=== PATIENT | female | born 1965 | race Caucasian/White ===

== ENCOUNTER 2023-10-02 07:56 | Outpatient (RCR) | payer OTHER, SELFPAY | END 2023-10-02 23:59 | disposition home or self-care (01) | LOC: RPT 07:56 | PROVIDERS: ATTENDING PHYSICIAN Radiology Radiation Oncology; PRIMARYCARE PHYSICIAN Family Medicine | DX: I97.2 Postmastectomy lymphedema syndrome (principal); C50.812 Malignant neoplasm of overlapping sites of left female breast; M75.102 Unspecified rotator cuff tear or rupture of left shoulder, not specified as traumatic; Z73.6 Limitation of activities due to disability; M25.512 Pain in left shoulder; M79.622 Pain in left upper arm; M54.6 Pain in thoracic spine | CPT/HCPCS: 97140; 97530 ==

== ENCOUNTER 2023-11-13 17:24 | Outpatient (RCR) | payer OTHER, SELFPAY | END 2023-11-13 23:59 | disposition home or self-care (01) | LOC: RPT 17:24 | PROVIDERS: ATTENDING PHYSICIAN Radiology Radiation Oncology; PRIMARYCARE PHYSICIAN Family Medicine | DX: I97.2 Postmastectomy lymphedema syndrome (principal); C50.812 Malignant neoplasm of overlapping sites of left female breast; M75.102 Unspecified rotator cuff tear or rupture of left shoulder, not specified as traumatic; Z73.6 Limitation of activities due to disability; M25.512 Pain in left shoulder; M79.622 Pain in left upper arm; M54.6 Pain in thoracic spine | CPT/HCPCS: 97140; 97530 ==

== ENCOUNTER 2023-11-22 19:12 | Outpatient (RCR) | payer OTHER, SELFPAY | END 2023-11-22 23:59 | disposition home or self-care (01) | LOC: RPT 19:12 | PROVIDERS: ATTENDING PHYSICIAN Radiology Radiation Oncology; PRIMARYCARE PHYSICIAN Family Medicine | DX: I97.2 Postmastectomy lymphedema syndrome (principal); C50.812 Malignant neoplasm of overlapping sites of left female breast; M75.102 Unspecified rotator cuff tear or rupture of left shoulder, not specified as traumatic; Z73.6 Limitation of activities due to disability; M25.512 Pain in left shoulder; M79.622 Pain in left upper arm; M54.6 Pain in thoracic spine | CPT/HCPCS: 97140 ==

== ENCOUNTER 2024-01-10 18:11 | Outpatient (RCR) | payer OTHER, SELFPAY | END 2024-01-10 23:59 | disposition home or self-care (01) | LOC: RPT 18:11 | PROVIDERS: ATTENDING PHYSICIAN Radiology Radiation Oncology; PRIMARYCARE PHYSICIAN Family Medicine | DX: I97.2 Postmastectomy lymphedema syndrome (principal); C50.812 Malignant neoplasm of overlapping sites of left female breast; M75.102 Unspecified rotator cuff tear or rupture of left shoulder, not specified as traumatic; Z73.6 Limitation of activities due to disability; M25.512 Pain in left shoulder; M79.622 Pain in left upper arm; M54.6 Pain in thoracic spine | CPT/HCPCS: 97140; 97530 ==

== ENCOUNTER 2024-02-07 18:26 | Outpatient (RCR) | payer OTHER, SELFPAY | END 2024-02-07 23:59 | disposition home or self-care (01) | LOC: RPT 18:26 | PROVIDERS: ATTENDING PHYSICIAN Radiology Radiation Oncology; PRIMARYCARE PHYSICIAN Family Medicine | DX: I97.2 Postmastectomy lymphedema syndrome (principal); C50.812 Malignant neoplasm of overlapping sites of left female breast; M75.102 Unspecified rotator cuff tear or rupture of left shoulder, not specified as traumatic; Z73.6 Limitation of activities due to disability; M25.512 Pain in left shoulder; M79.622 Pain in left upper arm; M54.6 Pain in thoracic spine | CPT/HCPCS: 97140 ==

== ENCOUNTER 2024-04-17 18:08 | Outpatient (RCR) | payer OTHER, SELFPAY | END 2024-04-17 23:59 | disposition home or self-care (01) | LOC: RPT 18:08 | PROVIDERS: ATTENDING PHYSICIAN Radiology Radiation Oncology; PRIMARYCARE PHYSICIAN Family Medicine | DX: I97.2 Postmastectomy lymphedema syndrome (principal); C50.812 Malignant neoplasm of overlapping sites of left female breast; M75.102 Unspecified rotator cuff tear or rupture of left shoulder, not specified as traumatic; Z73.6 Limitation of activities due to disability; M25.512 Pain in left shoulder; M79.622 Pain in left upper arm; M54.6 Pain in thoracic spine | CPT/HCPCS: 97140 ==

== ENCOUNTER 2024-06-19 16:56 | Outpatient (RCR) | payer OTHER, SELFPAY | END 2024-06-19 23:59 | disposition home or self-care (01) | LOC: RPT 16:56 | PROVIDERS: ATTENDING PHYSICIAN Radiology Radiation Oncology; PRIMARYCARE PHYSICIAN Family Medicine | DX: I97.2 Postmastectomy lymphedema syndrome (principal); C50.812 Malignant neoplasm of overlapping sites of left female breast; M75.102 Unspecified rotator cuff tear or rupture of left shoulder, not specified as traumatic; Z73.6 Limitation of activities due to disability; M25.512 Pain in left shoulder; M79.622 Pain in left upper arm; M54.6 Pain in thoracic spine | CPT/HCPCS: 97140 ==

== ENCOUNTER 2024-06-24 18:05 | Outpatient (RCR) | payer OTHER, SELFPAY | END 2024-06-24 23:59 | disposition home or self-care (01) | LOC: RPT 18:05 | PROVIDERS: ATTENDING PHYSICIAN Radiology Radiation Oncology; PRIMARYCARE PHYSICIAN Family Medicine | DX: I97.2 Postmastectomy lymphedema syndrome (principal); C50.812 Malignant neoplasm of overlapping sites of left female breast; M75.102 Unspecified rotator cuff tear or rupture of left shoulder, not specified as traumatic; Z73.6 Limitation of activities due to disability; M25.512 Pain in left shoulder; M79.622 Pain in left upper arm; M54.6 Pain in thoracic spine | CPT/HCPCS: 97140 ==

== ENCOUNTER 2024-08-14 18:21 | Outpatient (RCR) | payer OTHER, SELFPAY | END 2024-08-14 23:59 | disposition home or self-care (01) | LOC: RPT 18:21 | PROVIDERS: ATTENDING PHYSICIAN Radiology Radiation Oncology; PRIMARYCARE PHYSICIAN Family Medicine | DX: I97.2 Postmastectomy lymphedema syndrome (principal); C50.812 Malignant neoplasm of overlapping sites of left female breast; M75.102 Unspecified rotator cuff tear or rupture of left shoulder, not specified as traumatic; Z73.6 Limitation of activities due to disability; M25.512 Pain in left shoulder; M79.622 Pain in left upper arm; M54.6 Pain in thoracic spine | CPT/HCPCS: 97140; 97530 ==

== ENCOUNTER 2024-10-07 18:11 | Outpatient (RCR) | payer OTHER, SELFPAY | END 2024-10-08 06:52 | disposition home or self-care (01) | LOC: RPT 18:11 | PROVIDERS: ATTENDING PHYSICIAN Radiology Radiation Oncology; PRIMARYCARE PHYSICIAN Family Medicine | DX: I97.2 Postmastectomy lymphedema syndrome (principal); C50.812 Malignant neoplasm of overlapping sites of left female breast; M75.102 Unspecified rotator cuff tear or rupture of left shoulder, not specified as traumatic; Z73.6 Limitation of activities due to disability; M25.512 Pain in left shoulder; M79.622 Pain in left upper arm; M54.6 Pain in thoracic spine | CPT/HCPCS: 97140 ==

== ENCOUNTER → 2025-05-02 09:47 | Outpatient (REF) | payer OTHER, SELFPAY | LOC: RAD 09:47 | PROVIDERS: ATTENDING PHYSICIAN Family Medicine | DX: E11.9 Type 2 diabetes mellitus without complications (principal); E78.2 Mixed hyperlipidemia | CPT/HCPCS: 75571 ==

== ENCOUNTER 2025-09-15 05:49 | Day surgery (SDC) | payer OTHER, SELFPAY ==
--- NOTE | 2025-07-29 15:10 | PTCARENOTE ---
Patient is currently taking Bimzelx from her bpm analyst and Faslodex from her oncologist. Dr. Washington is okay to proceed with surgery without stopping them (per July). Patient is okay to continue with medications per Dr Morales.
[2025-09-01 14:01] VITALS: BMI 29.1
[2025-09-15] VITALS (13 sets, daily range): BP systolic 116–189; BP diastolic 65–105; BMI 29.1
[2025-09-15] MEDS: TYLENOL 1000 MG PO (06:31)
[2025-09-15] MEDS: CELEBREX 200 MG PO (06:31)
[2025-09-15] MEDS: NORMOSOL-R/PLASMALYTE-A 1000 IV (06:38)
[2025-09-15] MEDS: DUONEB 3 ML INH (08:58)
[2025-09-15] MEDS: TYLENOL 500 MG PO (12:29)
== END 2025-09-15 12:30 | disposition home or self-care (01) ==
LOC: SDS 05:49
PROVIDERS: ATTENDING PHYSICIAN Orthopaedic Surgery Hand Surgery; FAMILY PHYSICIAN Family Medicine
DX: M75.102 Unspecified rotator cuff tear or rupture of left shoulder, not specified as traumatic (principal); M75.42 Impingement syndrome of left shoulder
CPT/HCPCS: 29827; 29826; 71045; 93005; 94640; C1713